=== PATIENT | female | born 1975 | race Caucasian/White ===

== ENCOUNTER 2023-08-16 15:32 | Emergency (ER) | payer OTHER ==
[2023-08-16 15:51] VITALS: TEMP 98.1
[2023-08-16 17:40] LABS: EOS % 2.8 % (0-4.5); HEMATOCRIT 35.8 % (32.4-45.2); HEMOGLOBIN 11.8 GM/dL (10.7-15.3); LYMPH % 33.9 % (8-40); MCH 29.1 pg (25.7-33.7); MEAN CELL VOLUME 88.1 fl (80-96); MEAN PLT VOLUME 9.9 fl (7.5-11.1); MONO % 9.3 % (3.8-10.2); PLATELET COUNT 124 10^3/uL (134-434); RBC 4.07 M/mm3 (3.60-5.2); RDW 12.7 % (11.6-15.6); WHITE BLOOD COUNT 5.6 K/mm3 (4.0-10.0)
[2023-08-16 18:07] LABS: POTASSIUM 4.4 mmol/L (3.5-5.1)
[2023-08-16 18:09] LABS: BLOOD UREA NITROGEN 8.8 mg/dL (7-18); CALCIUM 9.6 mg/dL (8.5-10.1)
[2023-08-16 18:13] LABS: BILIRUBIN,TOTAL 0.3 mg/dL (0.2-1); CREATININE 0.7 mg/dL (0.55-1.3); TOT PROT 6.9 g/dl (6.4-8.2)
[2023-08-16] MEDS ORDERED: MECLIZINE HCL 25 MG TABLET (FP) ONE (19:45)
[2023-08-16] MEDS: MECLIZINE HCL 25 MG TABLET (FP) PO ONE (19:52)
[2023-08-16 21:40] VITALS: BP 142/61; PULSE 52; RESP 16
== END 2023-08-16 22:18 | disposition home or self-care (01) ==
LOC: JER 15:32
DX: R07.89 Other chest pain (principal); R06.02 Shortness of breath; R00.2 Palpitations; R42 Dizziness and giddiness; R55 Syncope and collapse; R00.1 Bradycardia, unspecified
CPT/HCPCS: 36415; 71045-TC-FY; 71275-TC; 80053; 84439; 84443; 84484; 84703; 85025; 93005; 93010; 99285-25; Q9967